=== PATIENT | female | born 1990 | race Caucasian/White ===

== ENCOUNTER 2021-04-28 12:16 | Emergency (ER) | payer OTHER ==
[2021-04-28 12:31] VITALS: O2SAT 100
[2021-04-28] MEDS ORDERED: Zofran 4 MG/2 ML VIAL IV STA (12:44)
[2021-04-28] MEDS ORDERED: Sodium Chloride 0.9% 1000 ML 1,000 ML IV STA ×2 (12:44→13:35)
[2021-04-28] MEDS ORDERED: solu-MEDROL 125 MG, Sterile H2O 10 ml 2 ML IV ONE ×2 (12:46)
--- NOTE | 2021-04-28 12:47 | ERPHSYRPT ---
- History of Present Illness Time Seen by Provider: 04/28/21 12:30 Source: patient Exam Limitations: no limitations Patient Subjective Stated Complaint: pt here for cough, sob and not eating well, she has not felt well since friday and was covid positive yesterday. she states she is very anxious Triage Nursing Assessment: pt alert, resp easy, anxious at times, face mask in place, no cough, skin w/d/p. Physician History: This is a 30-year-old white female who has been having symptoms for approximately 1 week including a headache, body aches, sore throat, cough, shortness of breath, and diarrhea. She denies vomiting. She has not been around anybody that she knows to have COVID infection or other viral illness. She had a COVID test performed on 24 April 2021. This returned positive and she was notified yesterday on 04/27/2021. She also had influenza AMB swab obtained and these were negative per her report. Patient states her headache and body aches have improved but are still present. Her main issues are shortness of breath and cough. She was started on a Medrol Dosepak yesterday and took the first round of steroids but has not taken any today. Timing/Duration: week(s) (1) Cough Quality/Degree: moderate, productive cough (White to brownish sputum), sputum Possible Cause: no prior episodes Modifying Factors: Improves With: activity (Increases her shortness of breath), coughing Associated Symptoms: cough, lightheadedness, muscle aches, shortness of breath, sore throat Allergies/Adverse Reactions: No Known Drug Allergies Allergy (Verified 04/28/21 12:32) Home Medications: clonazePAM [Clonazepam] 1 ea DAILY 04/28/21 [History] methylPREDNISolone [Methylprednisolone] 1 ea DAILY 04/28/21 [History] Hx Tetanus, Diphtheria Vaccination/Date Given: Yes Hx Influenza Vaccination/Date Given: No Hx Pneumococcal Vaccination/Date Given: No Immunizations Up to Date: Yes Travel Risk - International Travel Have you traveled outside of the country in past 3 weeks: No - Coronavirus Screening Are you exhibiting any of the following symptoms?: Yes Symptoms: Cough: New Onset, Shortness of Breath Close contact with a COVID-19 positive Pt in past 14-21 Days: No - Vaccine Status Have you recieved a Covid-19 vaccination: Yes 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 - Review of Systems Constitutional: No Symptoms Eyes: No Symptoms Ears, Nose, & Throat: Throat Pain Respiratory: Cough, Dyspnea Cardiac: No Symptoms Abdominal/Gastrointestinal: No Symptoms Genitourinary Symptoms: No Symptoms Musculoskeletal: Arthralgias, Myalgias Skin: No Symptoms Neurological: No Symptoms Psychological: No Symptoms Endocrine: No Symptoms Hematologic/Lymphatic: No Symptoms Immunological/Allergic: No Symptoms All Other Systems: Reviewed and Negative - Past Medical History Pertinent Past Medical History: Yes Neurological History: No Pertinent History Psycho-Social History: Anxiety, Panic Disorder Other Medical History: pt states that5 she is anemic even when not - Past Surgical History Past Surgical History: Yes Female Surgical History: Section Other Surgical History: breast implants - Social History Smoking Status: Never smoker Exposure to second hand smoke: No Drug Use: none Patient Lives Alone: No - Female History Hx Last Menstrual Period: mar 2021 Hx Now: No - Nursing Vital Signs Nursing Vital Signs: Initial Vital Signs Temperature 98.0 F 04/28/21 12:24 Pulse Rate 90 04/28/21 12:24 Respiratory Rate 20 04/28/21 12:24 Blood Pressure 130/85 04/28/21 12:24 O2 Sat by Pulse Oximetry 100 04/28/21 12:24 Pain Scale Pain Intensity 7 - Physical Exam General Appearance: mild distress, alert, anxiety, thin Eye Exam: PERRL/EOMI, eyes nml inspection Ears, Nose, Throat Exam: normal ENT inspection, moist mucous membranes Neck Exam: normal inspection, non-tender, supple, full range of motion Respiratory Exam: normal breath sounds, lungs clear, airway intact, No chest tenderness, No respiratory distress Cardiovascular Exam: regular rate/rhythm, normal heart sounds, normal peripheral pulses Gastrointestinal/Abdomen Exam: soft, normal bowel sounds, No tenderness Pelvic Exam: not done Rectal Exam: not done Back Exam: normal inspection, normal range of motion, CVA tenderness Extremity Exam: normal inspection, normal range of motion, pelvis stable Neurologic Exam: alert, oriented x 3, cooperative, 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 No comparison EKG.) Ordered Tests: Active Orders 24 hr Category Date Time Status EKG-ER Only STAT Care 04/28/21 12:44 Active IV Insertion STAT Care 04/28/21 12:44 Active CHEST 1 VIEW (PORTABLE) Stat Exams 04/28/21 12:44 Taken BLOOD CULTURE Stat Lab 04/28/21 13:05 Received CBC W DIFF Stat Lab 04/28/21 12:45 Completed CMP Stat Lab 04/28/21 12:45 Completed D-DIMER QUANTITATIVE Stat Lab 04/28/21 13:05 Completed Lactic Acid Stat Lab 04/28/21 12:57 Completed [place] Screen Stat Lab 04/28/21 13:05 Completed TROPONIN Q3H Lab 04/28/21 13:05 Completed TROPONIN Q3H Lab 04/28/21 16:15 Ordered TROPONIN Q3H Lab 04/28/21 19:15 Ordered TROPONIN Q3H Lab 04/28/21 22:15 Ordered Medication Summary Generic Name Dose Route Start Last Admin Trade Name Freq PRN Reason Stop Dose Admin Sodium Chloride 1,000 mls @ 999 mls/hr 04/28/21 13:35 04/28/21 13:38 Sodium Chloride 0.9% 1000 Ml IV 04/28/21 14:35 999 mls/hr .Q1H1M STA Administration Discontinued Medications Generic Name Dose Route Start Last Admin Trade Name Freq PRN Reason Stop Dose Admin Methylprednisolone Sodium 0 mg 04/28/21 12:46 04/28/21 12:53 Succinate 125 mg/ Sterile IV 04/28/21 12:47 125 mg Water 2 ml STAT ONE Administration Sodium Chloride 1,000 mls @ 999 mls/hr 04/28/21 12:44 04/28/21 12:53 Sodium Chloride 0.9% 1000 Ml IV 04/28/21 13:44 999 mls/hr .Q1H1M STA Administration Sodium Chloride Confirm 04/28/21 12:51 Sodium Chloride 0.9% 1000 Ml Administered 04/28/21 12:52 Dose 1,000 mls @ ud .ROUTE .STK-MED ONE Sodium Chloride Confirm 04/28/21 13:37 Sodium Chloride 0.9% 1000 Ml Administered 04/28/21 13:38 Dose 1,000 mls @ ud .ROUTE .STK-MED ONE Methylprednisolone Sodium Succinate Confirm 04/28/21 12:50 Methylprednis Sod Succ 125 Mg/2 Ml Vial Administered 04/28/21 12:51 Dose 125 mg .ROUTE .STK-MED ONE Ondansetron HCl 4 mg 04/28/21 12:44 04/28/21 12:53 Ondansetron Hcl 4 Mg/2 Ml Vial IV 04/28/21 12:45 4 mg STAT STA Administration Ondansetron HCl Confirm 04/28/21 12:50 Ondansetron Hcl 4 Mg/2 Ml Vial Administered 04/28/21 12:51 Dose 4 mg .ROUTE .STK-MED ONE Sterile Water Confirm 04/28/21 12:50 Water For Injection,Sterile 10 Ml Vial Administered 04/28/21 12:51 Dose 10 ml IJ .STK-MED ONE Lab/Rad Data: Laboratory Result Diagrams 04/28/21 12:45 04/28/21 12:45 Laboratory Results 04/28/21 04/28/21 04/28/21 Range/Units 13:05 13:05 13:05 WBC (4.0-10.5) K/mm3 RBC (4.1-5.4) M/mm3 Hgb (12.0-16.0) gm/dl Hct (35-47) % MCV (78-100) fl MCH (26-32) pg MCHC (32-36) g/dl RDW (11.5-14.0) % Plt Count (150-450) K/mm3 MPV (7.5-11.0) fl Gran % (36.0-66.0) % Eos # (Auto) (0-0.5) Absolute Lymphs (auto) (1.0-4.6) Absolute Monos (auto) (0.0-1.3) Lymphocytes % (24.0-44.0) % Monocytes % (0.0-12.0) % Eosinophils % (0.00-5.0) % Basophils % (0.0-0.4) % Absolute Granulocytes (1.4-6.9) Basophils # (0-0.4) D-Dimer 456 (215-500) ng/mL Sodium (137-145) mmol/L Potassium (3.5-5.1) mmol/L Chloride (98-107) mmol/L Carbon Dioxide (22-30) mmol/L Anion Gap (5-15) MEQ/L BUN (7-17) mg/dL Creatinine (0.52-1.04) mg/dL Estimated GFR ML/MIN Glucose (74-106) mg/dL Lactic Acid (0.4-2.0) Calcium (8.4-10.2) mg/dL Total Bilirubin (0.2-1.3) mg/dL AST (14-36) U/L ALT (0-35) U/L Alkaline Phosphatase (38-126) U/L Troponin I < 0.012 (0.000-0.034) ng/mL Serum Total Protein (6.3-8.2) g/dL Albumin (3.5-5.0) g/dL Monoscreen NEGATIVE (Negative) Group A Strep Antibody (NEGATIVE) 04/28/21 04/28/21 04/28/21 Range/Units 13:05 12:57 12:45 WBC (4.0-10.5) K/mm3 RBC (4.1-5.4) M/mm3 Hgb (12.0-16.0) gm/dl Hct (35-47) % MCV (78-100) fl MCH (26-32) pg MCHC (32-36) g/dl RDW (11.5-14.0) % Plt Count (150-450) K/mm3 MPV (7.5-11.0) fl Gran % (36.0-66.0) % Eos # (Auto) (0-0.5) Absolute Lymphs (auto) (1.0-4.6) Absolute Monos (auto) (0.0-1.3) Lymphocytes % (24.0-44.0) % Monocytes % (0.0-12.0) % Eosinophils % (0.00-5.0) % Basophils % (0.0-0.4) % Absolute Granulocytes (1.4-6.9) Basophils # (0-0.4) D-Dimer (215-500) ng/mL Sodium 140 (137-145) mmol/L Potassium 4.0 (3.5-5.1) mmol/L Chloride 103 (98-107) mmol/L Carbon Dioxide 23 (22-30) mmol/L Anion Gap 17.6 H (5-15) MEQ/L BUN 10 (7-17) mg/dL Creatinine 0.65 (0.52-1.04) mg/dL Estimated GFR > 60.0 ML/MIN Glucose 108 H (74-106) mg/dL Lactic Acid 4.1 H (0.4-2.0) Calcium 9.6 (8.4-10.2) mg/dL Total Bilirubin 0.50 (0.2-1.3) mg/dL AST 39 H (14-36) U/L ALT 39 H (0-35) U/L Alkaline Phosphatase 46 (38-126) U/L Troponin I (0.000-0.034) ng/mL Serum Total Protein 7.5 (6.3-8.2) g/dL Albumin 4.4 (3.5-5.0) g/dL Monoscreen (Negative) Group A Strep Antibody NOT DETECTED (NEGATIVE) 04/28/21 Range/Units 12:45 WBC 7.2 (4.0-10.5) K/mm3 RBC 4.21 (4.1-5.4) M/mm3 Hgb 12.6 (12.0-16.0) gm/dl Hct 38.6 (35-47) % MCV 91.7 (78-100) fl MCH 29.9 (26-32) pg MCHC 32.6 (32-36) g/dl RDW 12.5 (11.5-14.0) % Plt Count 220 (150-450) K/mm3 MPV 10.8 (7.5-11.0) fl Gran % 77.1 H (36.0-66.0) % Eos # (Auto) 0 (0-0.5) Absolute Lymphs (auto) 1.13 (1.0-4.6) Absolute Monos (auto) 0.53 (0.0-1.3) Lymphocytes % 15.6 L (24.0-44.0) % Monocytes % 7.3 (0.0-12.0) % Eosinophils % 0.0 (0.00-5.0) % Basophils % 0.0 (0.0-0.4) % Absolute Granulocytes 5.58 (1.4-6.9) Basophils # 0 (0-0.4) D-Dimer (215-500) ng/mL Sodium (137-145) mmol/L Potassium (3.5-5.1) mmol/L Chloride (98-107) mmol/L Carbon Dioxide (22-30) mmol/L Anion Gap (5-15) MEQ/L BUN (7-17) mg/dL Creatinine (0.52-1.04) mg/dL Estimated GFR ML/MIN Glucose (74-106) mg/dL Lactic Acid (0.4-2.0) Calcium (8.4-10.2) mg/dL Total Bilirubin (0.2-1.3) mg/dL AST (14-36) U/L ALT (0-35) U/L Alkaline Phosphatase (38-126) U/L Troponin I (0.000-0.034) ng/mL Serum Total Protein (6.3-8.2) g/dL Albumin (3.5-5.0) g/dL Monoscreen (Negative) Group A Strep Antibody (NEGATIVE) - Progress Progress: improved, re-examined Counseled pt/family regarding: lab results, diagnosis, need for follow-up, rad results - Departure Departure Disposition: Home Clinical Impression: COVID-19 virus infection Condition: Stable Critical Care Time: No Referrals: DOCTOR,NO FAMILY [NON-STAFF PHY W/O PRIVILEGES] - Follow up/PCP as directed Additional Instructions: Drink plenty of fluids. Take your medication as prescribed. Prescriptions: Hydrocodone/Acetaminophen [Hydrocodone-Acetamn 7.5-325/15] 10 ml PO Q8H PRN PRN #120 ml MDD 30 ml PRN Reason: Cough Albuterol 8 gm Mdi Hfa [Ventolin Hfa MDI] 8 gm IH Q4H #1 gm
[2021-04-28] MEDS ORDERED: Zofran 4 MG/2 ML VIAL ONE (12:50)
[2021-04-28] MEDS ORDERED: Sterile H2O 10 ml IJ ONE (12:50)
[2021-04-28] MEDS ORDERED: solu-MEDROL ONE (12:50)
[2021-04-28] MEDS ORDERED: Sodium Chloride 0.9% 1000 ML 1,000 ML ONE ×2 (12:51→13:37)
[2021-04-28 13:20] LABS: Absolute Neutrophil Ct (ANC) 5.58 (1.4-6.9); Basophil (Absolute #) 0 (0-0.4); Eosinophil (Absolute #) 0 (0-0.5); Hematocrit 38.6 % (35-47); Hemoglobin 12.6 gm/dl (12.0-16.0); Lymphocyte (Absolute #) 1.13 (1.0-4.6); Lymphocytes % 15.6 % (24.0-44.0); Mean Cell Volume 91.7 fl (78-100); Mean Corpuscular Hemoglobin 29.9 pg (26-32); Mean Corpuscular Hgb Concent. 32.6 g/dl (32-36); Mean Platelet Volume 10.8 fl (7.5-11.0); Monocyte (Absolute #) 0.53 (0.0-1.3); Monocytes % 7.3 % (0.0-12.0); Neutrophil % 77.1 % (36.0-66.0); Platelet Count 220 K/mm3 (150-450); Red Blood Count 4.21 M/mm3 (4.1-5.4); Red Cell Distribution Width 12.5 % (11.5-14.0); White Blood Count 7.2 K/mm3 (4.0-10.5)
[2021-04-28 13:23] LABS: ALBUMIN 4.4 g/dL (3.5-5.0); ALKALINE PHOSPHATASE 46 U/L (38-126); ANION GAP 17.6 MEQ/L (5-15); BLOOD UREA NITROGEN 10 mg/dL (7-17); CHLORIDE 103 mmol/L (98-107); Calcium 9.6 mg/dL (8.4-10.2); Carbon Dioxide 23 mmol/L (22-30); Creatinine 1 0.65 mg/dL (0.52-1.04); EST GLOMERULAR FILTRATION RATE > 60.0 ML/MIN; Glucose 108 mg/dL (74-106); SGOT/AST 39 U/L (14-36); SODIUM 140 mmol/L (137-145); Total Protein 7.5 g/dL (6.3-8.2)
[2021-04-28 13:30] LABS: SGPT/ALT 39 U/L (0-35)
[2021-04-28 14:10] VITALS: BP 111/66; PULSE 68
--- NOTE | 2021-04-28 18:39 | XRAY ---
Indication: Cough. Suspect Covid 19. Comparison: November 17, 2018. Portable apical lordotic chest again demonstrates normal heart, lungs, and bony thorax. Incidental bilateral breast implants and jewelry.
== END 2021-04-28 14:36 | disposition home or self-care (01) ==
LOC: ED 12:16
DX: U07.1 COVID-19 (principal); R06.02 Shortness of breath; R05.9 Cough, unspecified; R51.9 Headache, unspecified; M79.10 Myalgia, unspecified site; J02.9 Acute pharyngitis, unspecified; R19.7 Diarrhea, unspecified; Z79.891 Long term (current) use of opiate analgesic
CPT/HCPCS: 36000; 36415; 71045; 80053; 83605; 84484; 85025; 85379; 86308; 87040; 87651; 93005; 96360; 96374; 96375; 99284; J2405; J2930

== ENCOUNTER 2021-12-09 14:24 | Emergency (ER) | payer OTHER ==
[2021-12-09 14:41] VITALS: BP 144/96; PULSE 79; O2SAT 98
--- NOTE | 2021-12-09 15:16 | ERPHSYRPT ---
- History of Present Illness Time Seen by Provider: 12/09/21 15:15 Source: patient Exam Limitations: no limitations Patient Subjective Stated Complaint: mid lower back pain and urethra pain x 2 weeks Triage Nursing Assessment: pt to ED c/o pain in medial lower back that is intermittent and does not radiate. back is tender to palpation. also c/o pain at urethra that is throbbing and constant. states "my pee smells awful and its cloudy, it has a horrible smell." hx kidney stones that normally pass on their own after some time, but reports this pain is more severe and worsening. Physician History: c/o pain in medial lower back that is intermittent and does not radiate. back is tender to palpation. also c/o pain at urethra that is throbbing and constant. states "my pee smells awful and its cloudy, it has a horrible smell." hx kidney stones that normally pass on their own after some time, but reports this pain is more severe and worsening. Timing/Duration: week(s) (two weeks) Allergies/Adverse Reactions: No Known Drug Allergies Allergy (Verified 04/28/21 12:32) Home Medications: clonazePAM [Clonazepam] 1 ea DAILY 04/28/21 [History] methylPREDNISolone [Methylprednisolone] 1 ea DAILY 04/28/21 [History] Hx Tetanus, Diphtheria Vaccination/Date Given: Yes Hx Influenza Vaccination/Date Given: No Hx Pneumococcal Vaccination/Date Given: No Immunizations Up to Date: No Travel Risk - International Travel Have you traveled outside of the country in past 3 weeks: No - Coronavirus Screening Are you exhibiting any of the following symptoms?: No Close contact with a COVID-19 positive Pt in past 14-21 Days: No - Vaccine Status Have you recieved a Covid-19 vaccination: Yes 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 - Review of Systems Constitutional: No Fever, No Chills Eyes: No Symptoms Ears, Nose, & Throat: No Symptoms Respiratory: No Cough, No Dyspnea Cardiac: No Chest Pain, No Edema, No Syncope Abdominal/Gastrointestinal: No Abdominal Pain, No Nausea, No Vomiting, No Diarrhea Genitourinary Symptoms: No Dysuria Musculoskeletal: Back Pain, No Neck Pain Skin: No Rash Neurological: No Dizziness, No Focal Weakness, No Sensory Changes Psychological: No Symptoms Endocrine: No Symptoms All Other Systems: Reviewed and Negative - Past Medical History Pertinent Past Medical History: Yes Neurological History: No Pertinent History Psycho-Social History: Anxiety, Panic Disorder Other Medical History: pt states that5 she is anemic even when not . kidney stones - Past Surgical History Past Surgical History: Yes Female Surgical History: Section Other Surgical History: breast implants - Social History Smoking Status: Never smoker Exposure to second hand smoke: No Drug Use: marijuana Patient Lives Alone: No - Female History Hx Last Menstrual Period: 11/20/21 Hx Now: (unknown) - Nursing Vital Signs Nursing Vital Signs: Initial Vital Signs Pulse Rate 79 12/09/21 14:30 Respiratory Rate 18 12/09/21 14:30 Blood Pressure 144/96 12/09/21 14:30 O2 Sat by Pulse Oximetry 98 12/09/21 14:30 Pain Scale Pain Intensity [Lower Medial 5 Back] Pain Intensity 5 - Physical Exam General Appearance: no apparent distress, alert Eye Exam: PERRL/EOMI, eyes nml inspection Ears, Nose, Throat Exam: normal ENT inspection, TMs normal, pharynx normal, moist mucous membranes Neck Exam: normal inspection, non-tender, supple, full range of motion Respiratory Exam: normal breath sounds, lungs clear, No respiratory distress Cardiovascular Exam: regular rate/rhythm, normal heart sounds, normal peripheral pulses Gastrointestinal/Abdomen Exam: soft, normal bowel sounds, No tenderness, No mass Back Exam: normal inspection, normal range of motion, No CVA tenderness, No vertebral tenderness Extremity Exam: normal inspection, normal range of motion, pelvis stable Neurologic Exam: alert, oriented x 3, cooperative, normal mood/affect, nml cerebellar function, nml station & gait, sensation nml, No motor deficits Skin Exam: normal color, warm, dry, No rash Lymphatic Exam: No adenopathy SpO2: 98 Ordered Tests: Active Orders 24 hr Category Date Time Status CULTURE,URINE Stat Lab 12/09/21 15:45 Received HCG,QUALITATIVE URINE Stat Lab 12/09/21 15:45 Completed UA W/RFX CULTURE Stat Lab 12/09/21 15:45 Completed Lab/Rad Data: Laboratory Results 12/09/21 12/09/21 Range/Units 15:45 15:45 Urinalys Dipstick Clnc MAIN LAB Urine Color YELLOW (YELLOW) Urine Appearance SLIGHTLY CLOUDY (CLEAR) Urine pH 6.5 (5-6) Ur Specific [place] 1.025 (1.005-1.025) POC Urine Protein Conf NEGATIVE (Negative) Urine Ketones NEGATIVE (NEGATIVE) Urine Nitrite NEGATIVE (NEGATIVE) Urine Bilirubin NEGATIVE (NEGATIVE) Urine Urobilinogen 0.2 (0-1) mg/dL Urine Leukocytes NEGATIVE (NEGATIVE) Urine WBC (Auto) 16-25 (0-5) /HPF Urine RBC (Auto) 26-50 (0-2) /HPF U Epithel Cells (Auto) RARE (FEW) /HPF Urine Bacteria (Auto) RARE (NEGATIVE) /HPF Urine RBC MODERATE (0-5) Kar/ul Urine Mucus (Auto) SLIGHT (NEGATIVE) /HPF Ur Culture Indicated? YES Urine Glucose NEGATIVE (NEGATIVE) mg/dL Urine HCG, Qual NEGATIVE (Negative) - Progress Progress: improved, pain not gone completely Counseled pt/family regarding: lab results, diagnosis, need for follow-up - Departure Departure Disposition: Home Clinical Impression: Acute UTI (urinary tract infection), Renal calculus or stone Condition: Stable Critical Care Time: No Referrals: OSMAN AGNEL MD [Primary Care Provider] - Follow up/PCP as directed Prescriptions: Ciprofloxacin [Cipro 500 MG] 500 mg PO BIDAC #20 tablet Cyclobenzaprine HCl 10 mg [Flexeril 10 MG] 10 mg PO TID #30 tablet
[2021-12-09 15:55] LABS: Bacteria RARE /HPF (NEGATIVE); Epithelial Cells RARE /HPF (FEW); Mucus SLIGHT /HPF (NEGATIVE); RBC 26-50 /HPF (0-2)
[2021-12-09 15:58] LABS: Appearance SLIGHTLY CLOUDY (CLEAR); Bilirubin NEGATIVE (NEGATIVE); Dipstick done @ ? MAIN LAB; Glucose NEGATIVE (NEGATIVE); Ketones NEGATIVE (NEGATIVE); Nitrite NEGATIVE (NEGATIVE); Ph 6.5 (5-6); Protein,Urine Dip NEGATIVE (Negative); RBC MODERATE Ery/ul (0-5); Specific Gravity 1.025 (1.005-1.025); Urobilinogen 0.2 mg/dL (0-1)
[2021-12-09 16:01] LABS: Urine Cultured Indicated? YES
== END 2021-12-09 16:22 | disposition home or self-care (01) ==
LOC: ED 14:24
DX: N39.0 Urinary tract infection, site not specified (principal); N20.0 Calculus of kidney; Z87.442 Personal history of urinary calculi; M54.50 Low back pain, unspecified; Z79.899 Other long term (current) drug therapy
CPT/HCPCS: 81015; 81025; 87077; 87086; 87186; 99282

== ENCOUNTER 2021-12-22 20:51 | Emergency (ER) | payer OTHER ==
[2021-12-22] MEDS ORDERED: Sodium Chloride 0.9% 1000 ML 1,000 ML IV STA (21:36)
[2021-12-22] MEDS ORDERED: TORAdol 30 mg Injection IV ONE (21:38)
[2021-12-22] MEDS ORDERED: TORAdol 30 mg Injection ONE (21:39)
[2021-12-22] MEDS ORDERED: Sodium Chloride 0.9% 1000 ML 1,000 ML ONE (21:40)
--- NOTE | 2021-12-22 21:41 | ERPHSYRPT ---
- History of Present Illness Time Seen by Provider: 12/22/21 21:35 Historian: patient, family Exam Limitations: no limitations Patient Subjective Stated Complaint: mid to low back pain, and rt sided low back pain Triage Nursing Assessment: pt ambulated into ER without diff. Pt c/o mid to low back pain and rt sided low back pain. Pt states, "I think I have a kidney stone". I was in ER Friday but they didn't do a CT Scan, and I followed up with Dr. Angel yesterday. Pt denies any nausea but has a headache. Abd soft with active bs x4 quad, nontender. Physician History: pt has order for CT noncont. from Dr. Angel, and he told her if pain persisted to come to ER and get it to rule out potential concerns. Discussed risk/rad with pt and spouse and they wish to proceed. Prior Hx lots of stones, but none for 8 years. ABd nontender without peritoneal signs. Timing/Duration: day(s), week(s), constant, worse Activities at Onset: none Quality: sharpness, throbbing Abdominal Pain Onset Location: flank Pain Radiation: flank Severity of Pain-Max: moderate Severity of Pain-Current: moderate Modifying Factors: Improves With: nothing Associated Symptoms: nausea Previous symptoms: same symptoms as today, recently seen, recently treated Allergies/Adverse Reactions: No Known Drug Allergies Allergy (Verified 12/22/21 21:07) Home Medications: clonazePAM [Clonazepam] 0.25 ea DAILY 04/28/21 [History] Tramadol HCl 50 mg [Ultram 50 mg] 1 tab PO Q6H PRN PRN 12/22/21 [History] Hx Tetanus, Diphtheria Vaccination/Date Given: Yes Hx Influenza Vaccination/Date Given: No Hx Pneumococcal Vaccination/Date Given: No Immunizations Up to Date: Yes Travel Risk - International Travel Have you traveled outside of the country in past 3 weeks: No - Coronavirus Screening Are you exhibiting any of the following symptoms?: No Close contact with a COVID-19 positive Pt in past 14-21 Days: No - Vaccine Status Have you recieved a Covid-19 vaccination: Yes [employer]: Moderna - Vaccination Dates Date of 2cond Vaccination (if applicable): . - Review of Systems Constitutional: No Fever, No Chills Eyes: No Symptoms Ears, Nose, & Throat: No Symptoms Respiratory: No Cough, No Dyspnea Cardiac: No Chest Pain, No Edema, No Syncope Abdominal/Gastrointestinal: Abdominal Pain, Nausea, No Vomiting, No Diarrhea Genitourinary Symptoms: Hematuria, Flank Pain, No Dysuria Musculoskeletal: No Back Pain, No Neck Pain Skin: No Rash Neurological: No Dizziness, No Focal Weakness, No Sensory Changes Psychological: No Symptoms Endocrine: No Symptoms Hematologic/Lymphatic: No Symptoms Immunological/Allergic: No Symptoms All Other Systems: Reviewed and Negative - Past Medical History Pertinent Past Medical History: Yes Neurological History: No Pertinent History History: Other (kidney stones) Psycho-Social History: Anxiety, Panic Disorder, Other Other Medical History: pt states that5 she is anemic even when not . kidney stones, ocd - Past Surgical History Past Surgical History: Yes Female Surgical History: Section Other Surgical History: breast implants - Social History Smoking Status: Never smoker Exposure to second hand smoke: No Drug Use: marijuana Patient Lives Alone: No - Female History Hx Last Menstrual Period: 12/20/21 Hx Now: No - Nursing Vital Signs Nursing Vital Signs: Initial Vital Signs Temperature 97.5 F 12/22/21 20:58 Pulse Rate 95 H 12/22/21 20:58 Respiratory Rate 17 12/22/21 20:58 Blood Pressure 136/87 12/22/21 20:58 O2 Sat by Pulse Oximetry 100 12/22/21 20:58 Pain Scale Pain Intensity 4 - Physical Exam General Appearance: no apparent distress, alert Eye Exam: PERRL/EOMI, eyes nml inspection Ears, Nose, Throat Exam: normal ENT inspection, pharynx normal, moist mucous membranes Neck Exam: normal inspection, non-tender, supple, full range of motion Respiratory Exam: normal breath sounds, lungs clear, No respiratory distress Cardiovascular Exam: regular rate/rhythm, normal heart sounds Gastrointestinal/Abdomen Exam: soft, No tenderness, No mass Pelvic Exam: deferred Rectal Exam: deferred Back Exam: normal inspection, normal range of motion, No CVA tenderness, No vertebral tenderness Extremity Exam: normal inspection, normal range of motion, pelvis stable Neurologic Exam: alert, oriented x 3, cooperative, normal mood/affect, nml cerebellar function, sensation nml, No motor deficits Skin Exam: normal color, warm, dry SpO2 Interpretation: normal SpO2: 100 O2 Delivery: Room Air - Course Nursing assessment & vital signs reviewed: Yes - CT Exams Abdomen/Pelvis CT Interpretation: Tele-radiologist Report, No appendicitis, Other (constipation signs) Ordered Tests: Active Orders 24 hr Category Date Time Status IV Insertion STAT Care 12/22/21 21:36 Active ABDOMEN AND PELVIS W/0 CONTRAS [CT] Stat Exams 12/22/21 21:36 Taken CBC W DIFF Stat Lab 12/22/21 21:44 Completed CMP Stat Lab 12/22/21 21:44 Completed HCG QUALITATIVE,SERUM Stat Lab 12/22/21 21:44 Completed LIPASE Stat Lab 12/22/21 21:44 Completed Lactic Acid Stat Lab 12/22/21 21:50 Completed UA W/RFX CULTURE Stat Lab 12/22/21 21:39 Completed Medication Summary Discontinued Medications Generic Name Dose Route Start Last Admin Trade Name Freq PRN Reason Stop Dose Admin Sodium Chloride 1,000 mls @ 999 mls/hr 12/22/21 21:36 12/22/21 21:41 Sodium Chloride 0.9% 1000 Ml IV 12/22/21 22:36 999 mls/hr .Q1H1M STA Administration Sodium Chloride Confirm 12/22/21 21:40 Sodium Chloride 0.9% 1000 Ml Administered 12/22/21 21:41 Dose 1,000 mls @ ud .ROUTE .STK-MED ONE Ketorolac Tromethamine 30 mg 12/22/21 21:38 12/22/21 21:42 Ketorolac Tromethamine 30 Mg/Ml Inj IV 12/22/21 21:39 30 mg STAT ONE Administration Ketorolac Tromethamine Confirm 12/22/21 21:39 Ketorolac Tromethamine 30 Mg/Ml Inj Administered 12/22/21 21:40 Dose 30 mg .ROUTE .STK-MED ONE Lab/Rad Data: Laboratory Result Diagrams 12/22/21 21:44 12/22/21 21:44 Laboratory Results 12/22/21 12/22/21 12/22/21 Range/Units 21:50 21:44 21:44 WBC (4.0-10.5) x10^3/uL RBC (4.1-5.4) x10^6/uL Hgb (12.0-16.0) g/dL Hct (35-47) % MCV (78-100) fL MCH (26-32) pg MCHC (32-36) g/dL RDW (11.5-14.0) % Plt Count (150-450) x10^3/uL MPV (7.5-11.0) fL Gran % (36.0-66.0) % Immature Gran % (Auto) (0.00-0.4) % Nucleat RBC Rel Count (0.00-0.1) % Eos # (Auto) (0-0.5) x10^3/uL Immature Gran # (Auto) (0.00-0.03) x10^3u/L Absolute Lymphs (auto) (1.0-4.6) x10^3/uL Absolute Monos (auto) (0.0-1.3) x10^3/uL Absolute Nucleated RBC (0.00-0.01) x10^3u/L Lymphocytes % (24.0-44.0) % Monocytes % (0.0-12.0) % Eosinophils % (0.00-5.0) % Basophils % (0.0-0.4) % Absolute Granulocytes (1.4-6.9) x10^3/uL Basophils # (0-0.4) x10^3/uL Sodium 137 (137-145) mmol/L Potassium 4.1 (3.5-5.1) mmol/L Chloride 106 (98-107) mmol/L Carbon Dioxide 23 (22-30) mmol/L Anion Gap 12.4 (5-15) MEQ/L BUN 16 (7-17) mg/dL Creatinine 0.64 (0.52-1.04) mg/dL Estimated GFR > 60.0 ML/MIN Glucose 98 (74-106) mg/dL Lactic Acid 1.5 (0.4-2.0) Calcium 9.1 (8.4-10.2) mg/dL Total Bilirubin 0.40 (0.2-1.3) mg/dL AST 26 (14-36) U/L ALT 17 (0-35) U/L Alkaline Phosphatase 118 (38-126) U/L Serum Total Protein 7.7 (6.3-8.2) g/dL Albumin 4.4 (3.5-5.0) g/dL Lipase 101 (23-300) U/L Serum , Qual NEGATIVE (Negative) Urinalys Dipstick Clnc Urine Color (YELLOW) Urine Appearance (CLEAR) Urine pH (5-6) Ur Specific [place] (1.005-1.025) POC Urine Protein Conf (Negative) Urine Ketones (NEGATIVE) Urine Nitrite (NEGATIVE) Urine Bilirubin (NEGATIVE) Urine Urobilinogen (0-1) mg/dL Urine Leukocytes (NEGATIVE) Urine WBC (Auto) (0-5) /HPF Urine RBC (Auto) (0-2) /HPF U Epithel Cells (Auto) (FEW) /HPF Urine Bacteria (Auto) (NEGATIVE) /HPF Urine RBC (0-5) Kar/ul Amorphous Crystals (NEGATIVE) /HPF Ur Culture Indicated? Urine Glucose (NEGATIVE) mg/dL 12/22/21 12/22/21 Range/Units 21:44 21:39 WBC 6.7 (4.0-10.5) x10^3/uL RBC 4.32 (4.1-5.4) x10^6/uL Hgb 13.4 (12.0-16.0) g/dL Hct 40.8 (35-47) % MCV 94.4 (78-100) fL MCH 31.0 (26-32) pg MCHC 32.8 (32-36) g/dL RDW 12.2 (11.5-14.0) % Plt Count 325 (150-450) x10^3/uL MPV 9.7 (7.5-11.0) fL Gran % 52.6 (36.0-66.0) % Immature Gran % (Auto) 0.2 (0.00-0.4) % Nucleat RBC Rel Count 0.0 (0.00-0.1) % Eos # (Auto) 0.13 (0-0.5) x10^3/uL Immature Gran # (Auto) 0.01 (0.00-0.03) x10^3u/L Absolute Lymphs (auto) 2.46 (1.0-4.6) x10^3/uL Absolute Monos (auto) 0.47 (0.0-1.3) x10^3/uL Absolute Nucleated RBC 0.00 (0.00-0.01) x10^3u/L Lymphocytes % 37.0 (24.0-44.0) % Monocytes % 7.1 (0.0-12.0) % Eosinophils % 2.0 (0.00-5.0) % Basophils % 1.1 (0.0-0.4) % Absolute Granulocytes 3.51 (1.4-6.9) x10^3/uL Basophils # 0.07 (0-0.4) x10^3/uL Sodium (137-145) mmol/L Potassium (3.5-5.1) mmol/L Chloride (98-107) mmol/L Carbon Dioxide (22-30) mmol/L Anion Gap (5-15) MEQ/L BUN (7-17) mg/dL Creatinine (0.52-1.04) mg/dL Estimated GFR ML/MIN Glucose (74-106) mg/dL Lactic Acid (0.4-2.0) Calcium (8.4-10.2) mg/dL Total Bilirubin (0.2-1.3) mg/dL AST (14-36) U/L ALT (0-35) U/L Alkaline Phosphatase (38-126) U/L Serum Total Protein (6.3-8.2) g/dL Albumin (3.5-5.0) g/dL Lipase (23-300) U/L Serum , Qual (Negative) Urinalys Dipstick Clnc MAIN LAB Urine Color YELLOW (YELLOW) Urine Appearance SLIGHTLY CLOUDY (CLEAR) Urine pH 6.5 (5-6) Ur Specific [place] 1.025 (1.005-1.025) POC Urine Protein Conf NEGATIVE (Negative) Urine Ketones NEGATIVE (NEGATIVE) Urine Nitrite NEGATIVE (NEGATIVE) Urine Bilirubin NEGATIVE (NEGATIVE) Urine Urobilinogen 0.2 (0-1) mg/dL Urine Leukocytes NEGATIVE (NEGATIVE) Urine WBC (Auto) 0-2 (0-5) /HPF Urine RBC (Auto) >101 (0-2) /HPF U Epithel Cells (Auto) RARE (FEW) /HPF Urine Bacteria (Auto) NONE SEEN (NEGATIVE) /HPF Urine RBC MODERATE (0-5) Kar/ul Amorphous Crystals FEW (NEGATIVE) /HPF Ur Culture Indicated? NO Urine Glucose NEGATIVE (NEGATIVE) mg/dL - Progress Progress: improved, re-examined Progress Note: 12/22/21 23:37 pt and spouse were advised that undetected conditions may still be evolving and that additional workup is required with their Dr. , they are comfortable with outpt f/u as opposed to further inpt w/u or obs especially in view of the current lack of concerning findings on CT and labs, and have the capacity for this choice.. Counseled pt/family regarding: lab results, diagnosis, need for follow-up, rad results - Departure Departure Disposition: Home Clinical Impression: Flank pain, Hematuria, Abdominal pain of unknown etiology Condition: Good Critical Care Time: No Referrals: OSMAN ANGEL MD [Primary Care Provider] - Follow up/PCP as directed Instructions: Kidney Stones (DC), Flank Pain, Blood in the Urine (Hematuria), Adult (DC), Constipation, Adult (DC), Abdominal Pain, Adult ED, Degenerative Disc Disease (DC) Additional Instructions: We did not find a specific cause for your pain and symptoms - there may be a condition evolving as yet undetected, so follow-up with your Dr. is important. We are providing instructions for kidney stones and want you to strain your urine for stones to help with the diagnosis, and we are also providing instructions for lumbar disc, blood in the urine ( to workup by your Dr. to rule out other causes in the kidney, ureters, and bladder) , and undiagnosed abdominal pain. Return meantime if any concerns, vomiting, or other symptoms. You may try some milk of magnesia with plenty of fluids also for the extra stool seen on CT. . We did not see signs of Spine arthritis on CT either, but sometimes there can still be disc disease that radiates to the flank.
[2021-12-22 21:47] LABS: Absolute Neutrophil Ct (ANC) 3.51 x10^3/uL (1.4-6.9); Basophil (Absolute #) 0.07 x10^3/uL (0-0.4); Eosinophil (Absolute #) 0.13 x10^3/uL (0-0.5); Hematocrit 40.8 % (35-47); Hemoglobin 13.4 g/dL (12.0-16.0); Lymphocyte (Absolute #) 2.46 x10^3/uL (1.0-4.6); Mean Cell Volume 94.4 fL (78-100); Mean Corpuscular Hgb Concent. 32.8 g/dL (32-36); Mean Platelet Volume 9.7 fL (7.5-11.0); Monocyte (Absolute #) 0.47 x10^3/uL (0.0-1.3); Monocytes % 7.1 % (0.0-12.0); Neutrophil % 52.6 % (36.0-66.0); Platelet Count 325 x10^3/uL (150-450); Red Blood Count 4.32 x10^6/uL (4.1-5.4); Red Cell Distribution Width 12.2 % (11.5-14.0); White Blood Count 6.7 x10^3/uL (4.0-10.5)
[2021-12-22 21:58] LABS: Amourphous Crystal FEW /HPF (NEGATIVE); Appearance SLIGHTLY CLOUDY (CLEAR); Bilirubin NEGATIVE (NEGATIVE); Dipstick done @ ? MAIN LAB; Epithelial Cells RARE /HPF (FEW); Glucose NEGATIVE (NEGATIVE); Ketones NEGATIVE (NEGATIVE); Nitrite NEGATIVE (NEGATIVE); Ph 6.5 (5-6); Protein,Urine Dip NEGATIVE (Negative); RBC MODERATE Ery/ul (0-5); Specific Gravity 1.025 (1.005-1.025); Urobilinogen 0.2 mg/dL (0-1); WBC 0-2 /HPF (0-5)
[2021-12-22 21:59] LABS: Bacteria NONE SEEN /HPF (NEGATIVE); RBC >101 /HPF (0-2); Urine Cultured Indicated? NO
[2021-12-22 22:08] LABS: ALBUMIN 4.4 g/dL (3.5-5.0); ALKALINE PHOSPHATASE 118 U/L (38-126); ANION GAP 12.4 MEQ/L (5-15); BLOOD UREA NITROGEN 16 mg/dL (7-17); CHLORIDE 106 mmol/L (98-107); Calcium 9.1 mg/dL (8.4-10.2); Carbon Dioxide 23 mmol/L (22-30); Creatinine 1 0.64 mg/dL (0.52-1.04); EST GLOMERULAR FILTRATION RATE > 60.0 ML/MIN; Glucose 98 mg/dL (74-106); LIPASE 101 U/L (23-300); Potassium 4.1 mmol/L (3.5-5.1); SGOT/AST 26 U/L (14-36); SGPT/ALT 17 U/L (0-35); SODIUM 137 mmol/L (137-145); Total Protein 7.7 g/dL (6.3-8.2)
[2021-12-22 23:37] VITALS: O2SAT 100
[2021-12-22 23:52] VITALS: BP 108/73; PULSE 64
--- NOTE | 2021-12-23 08:36 | XRAY ---
Indication: Right abdomen/flank pain 1 month. Hematuria. Multiple contiguous axial images obtained through the abdomen and pelvis without contrast using renal stone protocol. Comparison: None Lung bases clear. Heart not enlarged. Left kidney demonstrates a 2 mm nonobstructing calculus. No other renal calculus or evidence for obstructive uropathy in either system. Noncontrasted stomach and bowel loops appear nonobstructed. Normal appendix. Moderate diffuse scattered colonic fecal debris throughout. Tampon in situ. No free fluid/air. Remaining liver, gallbladder, pancreas, spleen, adrenal glands, kidneys, ureters, bladder, uterus, and aorta are unremarkable for noncontrast exam. Osseous structures intact. No ventral or inguinal hernias. Impression: 1. Nonobstructing left renal micro-calculus and diffuse fecal stasis. 2. Remaining CT abdomen/pelvis without contrast exam is negative. Comment: Preliminary interpretation made by [facility]. No critical discrepancy.
== END 2021-12-22 23:55 | disposition home or self-care (01) ==
LOC: ED 20:51
DX: R10.9 Unspecified abdominal pain (principal); R31.9 Hematuria, unspecified; R11.0 Nausea; Z87.442 Personal history of urinary calculi; Z79.891 Long term (current) use of opiate analgesic; Z79.899 Other long term (current) drug therapy
CPT/HCPCS: 36000; 36415; 74176; 80053; 81015; 83605; 83690; 84703; 85025; 96374; 99284; J1885

== ENCOUNTER 2024-06-06 14:23 | Emergency (ER) | payer OTHER ==
[2024-06-06 15:36] VITALS: BP 133/84; PULSE 88; RESP 18; TEMP 97.7; O2SAT 100
--- NOTE | 2024-06-06 15:55 | ERPHSYRPT ---
- History of Present Illness Time Seen by Provider: 06/06/24 15:40 Source: patient Exam Limitations: no limitations Patient Subjective Stated Complaint: pt here for abscess to forehead for a about 4 days now, was seen at a clinic and given antiboitics and states is not better. Triage Nursing Assessment: pt alert, walked in, resp easy, skin w/d/p. has swelling and redness to forehead,no drainage Allergies/Adverse Reactions: No Known Drug Allergies Allergy (Verified 12/22/21 21:07) Home Medications: clonazePAM [Clonazepam] 0.25 ea DAILY 04/28/21 [History] Lamotrigine 100 mg [lamICTAL 100MG TABLET] 200 mg PO DAILY 06/06/24 [History] Smz/Tmp Ds Tablet [Bactrim Ds Tablet] 1 udtab BID 06/06/24 [History] Hx Tetanus, Diphtheria Vaccination/Date Given: Yes (2023) Hx Influenza Vaccination/Date Given: No Hx Pneumococcal Vaccination/Date Given: No Immunizations Up to Date: Yes Travel Risk - International Travel Have you traveled outside of the country in past 3 weeks: No - Emerging Infectious Disease Are you exhibiting symptoms associated with any current EIDs: No - Past Medical History Pertinent Past Medical History: Yes Neurological History: No Pertinent History History: Other Psycho-Social History: Anxiety, Panic Disorder, Other Other Medical History: pt states that5 she is anemic even when not . kidney stones, ocd - Past Surgical History Past Surgical History: Yes Female Surgical History: Section Other Surgical History: breast implants - Female History Hx Last Menstrual Period: may Hx Now: No - Social History Smoking Status: Never smoker Exposure to second hand smoke: No Drug Use: marijuana - Social Determinants of Health Will the patient participate in the screening: Declined to provide - Nursing Vital Signs Nursing Vital Signs: Initial Vital Signs Temperature 97.7 F 06/06/24 15:25 Pulse Rate 88 06/06/24 15:25 Respiratory Rate 18 06/06/24 15:25 Blood Pressure 133/84 06/06/24 15:25 O2 Sat by Pulse Oximetry 100 06/06/24 15:25 Pain Scale Pain Intensity 6 - Physical Exam SpO2: 100 Procedures - Incision and Drainage Time of Procedure: 15:45 Timeout: Performed Site: right eyebrow/forehead Anesthesia: 1% Lidocaine cc's of anesthesia: other (0.5) Blade Size: 11 I & D Procedure: sterile dressing applied, culture obtained, other (alcohol prep) Results: moderate amount pus - Departure Departure Disposition: Home Clinical Impression: Abscess of forehead Condition: Good Critical Care Time: No Referrals: OSMAN ANGEL MD [Primary Care Provider] - Follow up/PCP as directed Instructions: Wound Care (DC)
== END 2024-06-06 16:09 | disposition home or self-care (01) ==
LOC: ED 14:23
DX: L02.01 Cutaneous abscess of face (principal); Z79.899 Other long term (current) drug therapy
CPT/HCPCS: 10060; 87070; 87077; 87186; 99283